=== PATIENT | female | born 1980 | race Caucasian/White ===

== ENCOUNTER → 2017-09-21 | Outpatient (CLI) | payer OTHER ==
--- NOTE | 2017-09-22 07:36 | MAMMOGRAPHY REPORT ---
ULTRASOUND OF BOTH BREASTS: 09/21/2017 CLINICAL HISTORY: 37-year-old woman with a family history of breast cancer presents for sonographic f ollow-up of numerous complicated cysts in the left breast and a benign-appearing solid mass in the ri t 7:00 breast. She underwent right breast stereotactic biopsy of a grouping of microcalcifications in February 2016, which yielded benign pathology results. COMPARISON: Comparison is made to exams dated: 03/09/2016 stereotactic biopsy, 03/03/2016 ultrasound, and 03/03/2016 mammogram - [facility]. FINDINGS: Real-time high-resolution sonographic evaluation was performed throughout each breast and each axilla. There is no suspicious right or left axillary lymphadenopathy. The breast parenchymal echotexture is heterogeneousdense. Numerous cysts, some of which contain internal nonvascular thin septations and debris are scattered throughout the entire left breast. A prominent anechoic benign s imple cyst which is also palpable is identified in the 1:00 left breast, 2 cm from the nipple, measur ing 10.9 x 8.3 x 10.6 mm. Other subcentimeter complicated cysts with prominent posterior acoustic en hancement identified in the 12:00 periareolar left breast, the 11:00 left breast, 1 cm from the nippl e, the 11:00 periareolar left breast in the 4:00 periareolar left breast. Larger cyst with numerous internal nonvascular septations are seen in the 2:00 left breast, 3 cm from the nipple, measuring 10. 4 x 4.8 515.3 mm. A nearly anechoic benign simple cyst in the 2:00 left breast, 1 cm from the nipple measures 13.4 x 6.7 x 12.8 mm, and another oval parallel circumscribed anechoic cyst in the 8:00 per iareolar left breast measures 13.5 x 6.0 x 14.7 mm. The largest cyst with internal nonvascular septa tions is seen in the 11:00 left breast, 3 cm from the nipple, measuring 15.6 x 13.6 x 14.6 mm. An oval parallel circumscribed isoechoic solid appearing mass is seen in the 7:00 right breast, 1 cm from the nipple measuring 6.6 x 2.8 x 7.9 mm, previously measured 8.0 x 2.8 x 7.8 mm. No other suspi cious solid or cystic mass is seen in the right breast on targeted ultrasound. Benign appearing comp licated cysts are seen in the 7:30 right breast, 1 cm from the nipple, measuring 4.4 x 2.4 x 2.5 mm a nd in the 9:00 right breast, 4 cm from the nipple, measuring 8.7 x 2.9 x 9.2 mm. IMPRESSION: ACR-BI-RADS CATEGORY 3: PROBABLY BENIGN - FOLLOW-UP RECOMMENDED 1. There are numerous anechoic benign simple cysts, complicated cyst with internal nonvascular septat ions and cyst clusters in both breasts compatible with benign fibrocystic changes. There is a benign -appearing circumscribed parallel subcentimeter solid mass in the 7:00 right breast, 1 cm from the ni pple, measuring 6.6 x 2.8 x 7.9 mm, that is unchanged comparing to the prior ultrasound, and most lik leny represents a benign fibroadenoma. Another six-month follow-up targeted right breast ultrasound i s recommended to ensure longer stability. 2. At the time of follow-up ultrasound in the right breast, can consider/discuss performing bilatera l tomosynthesis mammography, given the family history of breast cancer = mother in her 50s, and previ ous right breast stereotactic biopsy. Asuncion Henry M.D. ay/:09/21/2017 15:22:38 Jewel Stripper: Dr. Asuncion Henry, [facility] letter sent: Follow Up Recommended 3 BI-RADS Code: ACR-BI-RADS Category 3: Probably Benign
== END | disposition home or self-care (01) ==
LOC: C.MAMM 09:28
PROVIDERS: ATTEND Internal Medicine
DX: N63.10 Unspecified lump in the right breast, unspecified quadrant (principal); N60.01 Solitary cyst of right breast; N60.02 Solitary cyst of left breast; Z80.3 Family history of malignant neoplasm of breast

== ENCOUNTER → 2017-12-23 | Outpatient (CLI) | payer OTHER ==
[~2017-12-23] MED LIST: BCPILLS PO; CHOL1TAB42 PO; CYAN10005 PO; FERR1TAB23 PO; VNTHFA/IN INH
[2017-12-23 16:02] LABS: HEMATOCRIT 40.3 % (37-47); HEMOGLOBIN 13.8 g/dL (12.0-16.0); MEAN CELL VOLUME 88.4 fL (80-100); MEAN CORPUSCULAR HEMOGLOBIN 30.3 pg (25-34); MEAN CORPUSCULAR HGB CONC 34.2 g/dl (32-36); MEAN PLATELET VOLUME 10.2 fL (7.4-10.4); PLATELET COUNT 225 K/uL (130-400); RED CELL DISTRIBUTION WIDTH CV 12.7 % (11.5-14.5); RED CELL DISTRIBUTION WIDTH SD 40.8 fL (36.4-46.3); WHITE BLOOD COUNT 5.12 K/uL (4.8-10.8)
== END | disposition home or self-care (01) ==
LOC: C.LAB1850 15:15
PROVIDERS: ATTEND Obstetrics & Gynecology
DX: Z01.812 Encounter for preprocedural laboratory examination (principal)

== ENCOUNTER → 2017-12-30 | Day surgery (SDC) | payer OTHER ==
[2017-12-21 11:34] VITALS: Ht 175.3 cm; Wt 72.7 kg
--- NOTE | 2017-12-23 17:38 | HISTORY & PHYSICAL EXAMINATION ---
DATE OF ADMISSION: 12/30/2017 ADMITTING DIAGNOSES: 1. Dysfunctional uterine bleeding. 2. Probable endometrial polyp. ADMISSION HISTORY: The patient is a 37-year-old 0 on oral contraceptive pills who is admitted for diagnostic hysteroscopy, D&C and resection of probable endometrial polyp for dysfunctional uterine bleeding. The patient has been on the control pill for an extended period of time. Over the last 12-18 months the patient began to develop irregular vaginal bleeding throughout the menstrual cycle. Bleeding was not related to physical activity or intercourse. She was seen on campus and had a pelvic ultrasound which suggested an endometrial polyp. The patient was evaluated here in the office and had an office hysterosonogram which shows what appears to be a 1 cm endometrial polyp. Treatment options were discussed and the patient has been admitted for the above listed procedure. PAST MEDICAL HISTORY: OB: Nulligravida. ELECTRONIC TECHNOLOGIST: As above. MEDICAL: Malignant melanoma. SURGICAL: [place] teeth extraction. ALLERGIES: No known drug allergies. SOCIAL HISTORY: No smoking. FAMILY HISTORY: Noncontributory. REVIEW OF SYSTEMS: As per HPI. ADMISSION PHYSICAL EXAMINATION: GENERAL: Shows a pleasant female in no acute distress. VITAL SIGNS: Blood pressure 138/82 and a height of 5 feet 9 inches. HEENT EXAMINATION: Unremarkable. NECK: Supple. LUNGS: Clear. HEART: With a regular rhythm and rate. ABDOMEN: Soft, nontender. PELVIC: Shows normal external genitalia. Vaginal vault is pink and rugated. Cervical os is nulliparous and closed. Bimanual examination shows an anterior mobile uterus. Adnexa show no palpable masses. RECTAL: Confirmatory. EXTREMITIES: Shows no deep calf tenderness. NEUROLOGIC: Grossly intact. IMPRESSION: 37-year-old 0, dysfunctional uterine bleeding, probable endometrial polyp. PLAN: The risks, benefits and alternatives to the surgery have been discussed. While the benefits will be evaluation of the endometrial lining and removal of any tissue, the risks are bleeding, infection, inadvertent perforation of the uterus, and failure to diagnose and/or treat the problem. The patient understands, the permit has been signed and she wishes to proceed.
[~2017-12-30] VITALS: Ht 175.3 cm; Wt 72.7 kg
[~2017-12-30] MED LIST changes: +ATROPINE SULFATE 0.1 MG/ML 5ML SYR IV PRN; +DEXAMETHASONE SOD INJ 4 MG/ML VIAL IV PRN; +DEXAMETHASONE SOD INJ 4 MG/ML VIAL ONE; +EpHEDrine SULFATE INJ 50 MG/ML AMP IV PRN; +EpHEDrine SULFATE INJ 50 MG/ML AMP ONE; +FENTANYL CITRATE INJ 50 MCG/1 ML 2 ML VIAL IV PRN; +FENTANYL CITRATE INJ 50 MCG/1 ML 2 ML VIAL ONE; +IBUPROFEN 600 MG TAB PO PRN; +KETOROLAC TROMETHAMINE 30 MG/ML VIAL IV. PRN; +KETOROLAC TROMETHAMINE 30 MG/ML VIAL ONE; +LABETALOL HCL IV 5 MG/ML 20ML IV PRN; +LACTATED RINGER'S 1000ML 1,000 ML IV SCH; +LIDOCAINE HCL 2% 2 ML VIAL (20MG/ML) ONE; +METOCLOPRAMIDE HCL INJ 5 MG/ML 2 ML VIAL IV PRN; +MIDAZOLAM HCL 1 MG/ML 2ML VIAL ONE; +MoRPHine SULFATE 10 MG/ML CARP/VIAL IV PRN; +ONDANSETRON INJ 2 MG/ML 2 ML VIAL IV PRN; +ONDANSETRON INJ 2 MG/ML 2 ML VIAL ONE; +PHENYLEPHRINE 100MCG/ML 5ML SYR IV PRN; +PROPOFOL IV EMULSION 10 MG/ML 20 ML VIAL IV ONE; +SODIUM CHLORIDE 0.9% 1000ML 1,000 ML IV SCH; +WATER, STERILE FOR INJ 10 ML VIAL ONE
--- NOTE | 2017-12-30 07:46 | History & Physical Bridge - SC ---
H&P Re-Evaluation Bridge Note: I have examined the patient, reviewed the History & Physical and in the interval since the performance of the History & Physical I have noted the following changes of clinical significance: No changes noted
--- NOTE | 2017-12-30 08:18 | [facility] Post Operative Brief Note ---
Immediate Operative Summary Operative Date Dec 30, 2017. Pre-Operative Diagnosis 1.Dysfunctional Uterine Bleeding 2. Probable Endometrial Polyp Post-Operative Diagnosis Same Procedure(s) Performed 1. Dx Hysteroscopy 2. Endometrial curretage Surgeon Dr. Ball Cell Biology Scientist Surgeon(s) none Estimated Blood Loss Minimal Findings See Below Denuded endometrium with no polyp seen Fluids (cc crystalloids) 500 Specimens Endometrial curretings Drains None Anesthesia Type General Disposition Disposition: Recovery Room / PACU
--- NOTE | 2017-12-30 08:25 | Discharge Instructions-SurgCtr ---
Discharge Instructions Date of Service Dec 30, 2017. Visit Reason for Visit: Abnormal Ultrasound Of Endometrium, Dub Discharge Discharge Diagnosis / Problem: same Discharge Goals Goal(s): Therapeutic intervention Activity Recommendations Activity Limitations: as noted below Anesthesia . Post Anesthesia Instructions: If you have had General Anesthesia or IV Sedation: * Do not drive today. * Resume driving when surgeon permits. * Do not make important decisions or sign legal documents today. * Call surgeon for: 1. Temperature elevations greater than 101 degrees F. 2. Uncontrollable pain. 3. Excessive bleeding. 4. Persistent nausea and vomiting. 5. Medication intolerance (nausea, vomiting or rash). * For nausea and vomiting use only clear liquids such as: tea, soda, bouillon until nausea subsides, then gradually increase diet as tolerated. * If you have any concerns or questions, call your surgeon's office. If physician is unavailable and it is an emergency, call 911 or go to the nearest emergency room. . Instructions / Follow-Up Instructions / Follow-Up ACTIVITY RECOMMENDATIONS: * Avoid tampons, douching, hot tubs, pools, and intercourse until bleeding has stopped. * May shower as usual. * No strenuous activity for 24-48 hours. After 24-48 hours, you may do anything you feel like doing (driving and sports are okay). SPECIAL CARE INSTRUCTIONS: Special Diet: * Mild nausea may occur in the immediate post-operative period. * Take clear liquids such as tea, cola or bouillon until all nausea has subsided; you may then resume your normal diet. Special Care: * Light bleeding and vaginal spotting can last from a few days to 3-4 weeks. Call your doctor if bleeding becomes heavier than the heaviest part of your period. * Check your temperature twice a day for one week. If it goes above 100.4 degrees Fahrenheit (38.0 Celsius), notify your doctor. * Call your doctor's office for an appointment for 6 weeks after your surgery. FOLLOW-UP VISIT: Call your doctor's office for an appointment for 6 weeks after your surgery. Diet Recommendations Home Diet: resume previous diet Procedures Procedures Performed: 1. Dx Hysteroscopy 2. Endometrial curretage Pending Studies Studies pending at discharge: yes List of pending studies: Pathology report Medical Emergencies . Who to Call and When: Medical Emergencies: If at any time you feel your situation is an emergency, please call 911 immediately. . Non-Emergent Contact Non-Emergency issues call your: Semaphore Operator Call Non-Emergent contact if: temperature is above 100.5 . . "Provider Documentation" section prepared by Venkat Ball. .
[2017-12-30 09:02] VITALS: TEMP 36.2
--- NOTE | 2017-12-30 09:10 | OPERATIVE REPORT ---
DATE OF OPERATION: 12/30/2017 PREOPERATIVE DIAGNOSES: 1. Dysfunctional uterine bleeding. 2. Presumed endometrial polyp. POSTOPERATIVE DIAGNOSIS: Same. PROCEDURE PERFORMED: 1. Diagnostic hysteroscopy. 2. D&C. SURGEON: Dr. Ball. ANESTHESIA: General. FINDINGS: Hysteroscopic examination of the endometrium showed a smooth endometrial lining. Both ostia were visualized. No evidence of an endometrial polyp. Empiric curettage of the endometrial lining with repeat examination showing a continued denuded endometrium. PROCEDURE IN DETAIL: The patient was taken to the operating room and after general anesthesia was placed in the dorsal lithotomy position and draped and prepped in usual fashion. Bladder was drained of any residual urine. Single tooth tenaculum was used to grasp the anterior lip of the cervix. Uterus was sounded to a depth of 8.5 cm. The cervical os was dilated with Hogan dilators to a Hogan #25. The MyoSure hysteroscope was inserted into the endometrial cavity with description as above. The hysteroscope was removed and a medium curet was introduced into the uterine cavity. All 4 quadrants were curettaged and sent for pathological specimen. Repeat examination hysteroscopically showed a denuded endometrium. No active bleeding. Fluid deficit for the procedure 175 mL. The patient was taken to the recovery room in satisfactory condition. I attest to the content of the Intraoperative Record and any orders documented therein. Any exception s are noted below.
[2017-12-30 09:32] VITALS: BP 108/67; PULSE 67; O2SAT 100
--- NOTE | 2017-12-30 09:41 | Anesthesia Progress Nt - [facility] ---
Anesthesia Post Op Note Date & Time Dec 30, 2017 at 09:41 Vital Signs Pain Intensity: 0 Vital Signs Past 12 Hours Date Time Temp Pulse Resp B/P (MAP) Pulse Ox O2 Delivery O2 Flow Rate FiO2 12/30/17 09:32 67 16 108/67 (81) 100 Room Air 12/30/17 09:02 36.2 73 18 111/67 (82) 99 Room Air 12/30/17 08:56 72 10 99 12/30/17 08:56 72 10 12/30/17 08:55 112/68 12/30/17 08:55 37.1 77 12 112/68 98 Room Air 12/30/17 08:51 77 24 117/64 98 12/30/17 08:51 77 24 12/30/17 08:46 92 23 12/30/17 08:46 96 23 112/61 100 12/30/17 08:41 71 8 100 12/30/17 08:41 73 8 12/30/17 08:40 72 9 108/59 100 12/30/17 08:40 73 9 12/30/17 08:35 74 19 111/59 100 12/30/17 08:35 76 19 12/30/17 08:30 78 12/30/17 08:30 36.8 77 12 117/45 100 Diffusion Mask 6 12/30/17 08:30 78 117/45 100 12/30/17 06:43 36.9 80 16 101/58 (72) 98 Room Air Notes Mental Status: alert / awake / arousable, participated in evaluation Pt Amnestic to Procedure: Yes Nausea / Vomiting: adequately controlled Pain: adequately controlled Airway Patency, RR, SpO2: stable & adequate BP & HR: stable & adequate Hydration State: stable & adequate Anesthetic Complications: no major complications apparent
== END | disposition home or self-care (01) ==
LOC: X.SURG 06:34
PROVIDERS: ATTEND Obstetrics & Gynecology
DX: N93.8 Other specified abnormal uterine and vaginal bleeding (principal); R93.8 Abnormal findings on diagnostic imaging of other specified body structures; Z85.820 Personal history of malignant melanoma of skin; Z79.3 Long term (current) use of hormonal contraceptives